=== PATIENT | female | born 1960 | race Caucasian/White ===

== ENCOUNTER 2018-11-23 13:40 | Emergency (ER) | payer MEDICARE, OTHER, BC ==
[2018-11-23] MEDS: HYDROCODONE/APAP (10/325) TAB PO (14:19)
[2018-11-23] MEDS: ONDANSETRON (ODT) 4 MG TAB ODT (14:19)
== END 2018-11-23 15:26 | disposition home or self-care (01) ==
LOC: E/R 13:40
DX: S82.045A Nondisplaced comminuted fracture of left patella, initial encounter for closed fracture (principal); E03.9 Hypothyroidism, unspecified; W01.198A Fall on same level from slipping, tripping and stumbling with subsequent striking against other object, initial encounter; Y92.9 Unspecified place or not applicable; Z79.82 Long term (current) use of aspirin
CPT/HCPCS: 29505; 73562; 99283-25